=== PATIENT | female | born 1995 ===

== ENCOUNTER 2020-04-16 18:06 | Emergency (ER) | payer OTHER ==
[~2020-04-16] VITALS: Ht 167.6 cm; Wt 104.3 kg
[2020-04-16] MEDS ORDERED: ADVIL (18:46)
== END 2020-04-16 21:30 | disposition home or self-care (01) ==
LOC: ER 18:06
DX: R51.9 Headache, unspecified (principal); J02.8 Acute pharyngitis due to other specified organisms; B34.9 Viral infection, unspecified

== ENCOUNTER 2022-03-03 14:29 | Emergency (ER) | payer OTHER ==
[~2022-03-03] VITALS: Ht 167.6 cm; Wt 108.9 kg
[~2022-03-03 14:29] MED LIST: ADVIL
[2022-03-03] MEDS ORDERED: OSEL75CA PO (18:11)
== END 2022-03-03 18:35 | disposition home or self-care (01) ==
LOC: ER 14:29
DX: J10.1 Influenza due to other identified influenza virus with other respiratory manifestations (principal); Z20.822 Contact with and (suspected) exposure to COVID-19; R50.9 Fever, unspecified